=== PATIENT | female | born 1985 | race Caucasian/White ===

== ENCOUNTER → 2021-07-04 08:51 | Outpatient (BNVA) | payer OTHER, SELFPAY | PROVIDERS: PCP Physician Assistant Medical; Visit Provider Psychiatry & Neurology Neurology | DX: R25.1 Tremor, unspecified (principal); R06.83 Snoring | CPT/HCPCS: 99202 ==

== ENCOUNTER → 2021-08-12 14:47 | Outpatient (REF) | payer OTHER, SELFPAY | LOC: HO.SL 14:47 | PROVIDERS: PCP Physician Assistant Medical; Visit Provider Psychiatry & Neurology Neurology | DX: E66.9 Obesity, unspecified (principal); R06.83 Snoring | CPT/HCPCS: 95806 ==

== ENCOUNTER → 2021-09-05 09:20 | Outpatient (BNVA) | payer OTHER, SELFPAY | PROVIDERS: PCP Physician Assistant Medical; Visit Provider Psychiatry & Neurology Neurology | DX: G20 Parkinson's disease (principal); R06.83 Snoring | CPT/HCPCS: 99212 ==

== ENCOUNTER → 2021-12-11 09:16 | Outpatient (BNVA) | payer OTHER, SELFPAY | PROVIDERS: PCP Physician Assistant Medical; Visit Provider Psychiatry & Neurology Neurology | DX: G20 Parkinson's disease (principal); R06.83 Snoring | CPT/HCPCS: 99212 ==

== ENCOUNTER → 2022-03-19 09:09 | Outpatient (BNVA) | payer OTHER, SELFPAY | PROVIDERS: PCP Physician Assistant Medical; Visit Provider Psychiatry & Neurology Neurology | DX: G20 Parkinson's disease (principal); R06.83 Snoring; G25.81 Restless legs syndrome | CPT/HCPCS: 99212 ==

== ENCOUNTER → 2022-09-17 07:48 | Outpatient (BNVA) | payer OTHER, SELFPAY | PROVIDERS: PCP Physician Assistant Medical; Visit Provider Psychiatry & Neurology Neurology | DX: G20 Parkinson's disease (principal); R06.83 Snoring; G25.81 Restless legs syndrome | CPT/HCPCS: 99212 ==

== ENCOUNTER 2022-12-25 07:22 | Outpatient (AMB) | payer OTHER, SELFPAY ==
--- NOTE | 2022-12-25 07:36 | A.OFFVIS_ITS ---
Intake Vital Signs 12/25/22 07:37 Height 5 ft 3 in Weight 209 lb 6 oz BMI 37.1 BP 112/74 Blood Pressure Location Rt brachial Position Sitting Pulse 64 Pulse Source Pulse Oximeter Pulse Oximetry (%) 98 Oxygen Delivery Method Room Air Intake Visit Reasons: 3m follow up Tremors-confirmed Intake Note: Pt presents as a 3m f/u tremors. 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 Allergies latex Allergy (Intermediate, Verified 12/25/22 07:41) Hives sticky from bandages Adverse Reaction (Intermediate, Uncoded 12/25/22 07:41) Rash Medication List - Last Reconciled 12/25/22 by Patricia Lew MD acetaminophen ER (Tylenol 8 Hour) 1,300 mg PO .qhn baclofen 10 mg PO BID coenzyme Q10 (Co Q-10) 400 mg PO DAILY dulaglutide (Trulicity) 1.5 mg subcut QWEEK empagliflozin (Jardiance) 25 mg PO DAILY lancets (FreeStyle Lancets) As directed lidocaine 5% 1 patch topical DAILY metformin 500 mg PO BID omeprazole 20 mg PO DAILY propranolol ER 80 mg PO DAILY trihexyphenidyl 2 mg PO TID HPI HPI Comments History of Present Illness Details 37y/o right handed female comes for follow up of parkinsons disease. Her RAMAN scan showed asymmetric uptake in putamen c/w parkinsons disease. Her home sleep study was inconclusive. she reports loud snoring,frequent arousals, wakes up tired. she is on trihexyphenidyl 2mg bid , 1 tab as needed in the middle of the night and has noticed improvement.she has trouble with some activities.she denies any family history of parkinsons. 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 she feels weak in her left hand. No exposure to heavy metals or chemicals, no exposure to antipsychotics. she was given reglan( 6-8mts)last year after she had chloecystectomy. she denies any change in her speech , denies change in gait, denies REM sleep behavior disorder, denies cognitive issues, denies drooling, denies swallowing issues. [facility] Medical History Anxiety Benign breast disease Chronic back pain Depression Diabetes GERD (gastroesophageal reflux disease) Hyperlipidemia Obesity Osteoma of skull Restless legs syndrome (RLS) Snoring Surgical History H/O section H/O dilation and curettage Hx of cholecystectomy Family History Mother Breast cancer Diabetes Father Myocardial infarct Social History Household Members: Spouse and Children Housing: House Alcohol intake: former Patient Tobacco Use Status: Never used Tobacco Use of substances other than those prescribed or required for medical reasons: No Physical Exam Vital Signs: Last Vital Signs Pulse 64 12/25/22 07:37 BP 112/74 12/25/22 07:37 Pulse Ox 98 12/25/22 07:37 Oxygen Delivery Method Room Air 12/25/22 07:37 BMI result Body Mass Index 37.1 Const General: cooperative, healthy appearing, comfortable and no acute distress Nutritional Appearance: overweight Orientation/consciousness: patient oriented x3 HEENT Head: Yes normal to inspection and Yes normocephalic Neuro Other: Normal facial expression Normal blink intermittent rest tremors, mild left UE postural tremors 1+ cogwheel rigidity in the left upper extremity. Fine finger movements were mildly decreased on the left. Alternating hand movements mildly decreased on the left. Foot taps decreased on the left. Decreased shoulder shrug on the left. General: patient oriented x3 Gait exam (Neuro): Other gait observations present (normal stride , left UE high amplitude tremors and no arm swing on the left) Motor exam (neuro): 5/5 motor strength present throughout and Other motor observations present (Left UE - high amplitude rest, postural tremor) Psych Appearance: grossly normal Assessment & Plan Assessment & Plan (1) Parkinson's disease: Code(s): G20 - Parkinson's disease (2) Snoring: Code(s): R06.83 - Snoring (3) Restless legs syndrome (RLS): Code(s): G25.81 - Restless legs syndrome Plan Discussed Raman scan report - in detail and home sleep test in detail. Trihexyphenidyl 2mg 1 tab tid Continue hand exercises Decrease propranolol 80mg qd Suggested wrist splint for left wrist Magnesium 250-400mg qhs CMP and TSH normal Co Q 10 400mg qd Hg A1C 6.3 Medications: Changed From propranolol ER 120 mg PO DAILY 30 caps 3RF To propranolol ER 80 mg PO DAILY 30 caps 6RF Refilled trihexyphenidyl give with food (meal/snack) 2 mg PO TID 90 tabs 3RF Coding Level of Care Code Est Pt Level 4 (19061) Diagnoses Parkinson's disease G20 Snoring R06.83 Restless legs syndrome (RLS) G25.81
[2022-12-25 07:37] VITALS: BP 112/74; PULSE 64; O2SAT 98; BMI 37.1
== END 2022-12-25 08:07 | disposition home or self-care (01) ==
PROVIDERS: Visit Provider Psychiatry & Neurology Neurology
DX: G20 Parkinson's disease (principal); R06.83 Snoring; G25.81 Restless legs syndrome
CPT/HCPCS: 99214

== ENCOUNTER → 2022-12-25 07:22 | Outpatient (BNVA) | payer OTHER, SELFPAY | PROVIDERS: Visit Provider Psychiatry & Neurology Neurology | DX: G20 Parkinson's disease (principal); R06.83 Snoring; G25.81 Restless legs syndrome | CPT/HCPCS: 99212 ==

== ENCOUNTER 2023-05-06 07:27 | Outpatient (AMB) | payer OTHER, SELFPAY ==
--- NOTE | 2023-05-06 07:33 | A.OFFVIS_ITS ---
Intake Vital Signs 05/06/23 07:34 Height 5 ft 3 in Weight 206 lb BMI 36.5 BP 106/74 Blood Pressure Location Rt brachial Position Sitting Pulse 76 Pulse Source Pulse Oximeter Pulse Oximetry (%) 97 Oxygen Delivery Method Room Air Intake Visit Reasons: 4m f/u Tremors - Confirmed Intake Note: Patient presents for 4 month follow up tremors. Allergies latex Allergy (Intermediate, Verified 05/06/23 07:36) Hives sticky from bandages Adverse Reaction (Intermediate, Uncoded 05/06/23 07:36) Rash Medication List - Last Reconciled 05/06/23 by Patricia Lew MD acetaminophen ER (Tylenol 8 Hour) 1,300 mg PO .qhn baclofen 10 mg PO BID coenzyme Q10 (Co Q-10) 400 mg PO DAILY dulaglutide (Trulicity) 1.5 mg subcut QWEEK empagliflozin (Jardiance) 25 mg PO DAILY lancets (FreeStyle Lancets) As directed lidocaine 5% 1 patch topical DAILY magnesium oxide 400 mg PO DAILY metformin 500 mg PO BID naproxen (EC-Naproxen) 500 mg PO BID omeprazole 20 mg PO DAILY propranolol ER 80 mg PO DAILY trihexyphenidyl 2 mg PO TID HPI HPI Comments History of Present Illness Details 37y/o right handed female comes for foll ow up of parkinsons disease.she is doing well, had cramps in her right calf about 2 weeks . It was very painful and she was concerned about DVT so she went to ER- DVT was ruled out.Toradol helped for 2 hrs.she still has tightness in her right calf. Her labs including CK was normal SHe also tried warm compresses Her MARCIE scan showed asymmetric uptake in putamen c/w parkinsons disease. Her home sleep study was inconclusive. she reports loud snoring,frequent arousals, wakes up tired. she is on trihexyphenidyl 2mg bid , 1 tab as needed in the middle of the night and has noticed improvement.she has trouble with some activities.she denies any family history of parkinsons. 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 she feels weak in her left hand. No exposure to heavy metals or chemicals, no exposure to antipsychotics. she was given reglan( 6-8mts)last year after she had cholecystectomy. she denies any change in her speech , denies change in gait, denies REM sleep behavior disorder, denies cognitive issues, denies drooling, denies swallowing issues. [facility] Medical History (Updated 05/06/23 @ 08:12 by Patricia Lew MD) Muscle cramps Parkinson's disease without dyskinesia or fluctuating manifestations Restless legs syndrome (RLS) Snoring Osteoma of skull Benign breast disease Hyperlipidemia Obesity Anxiety Depression GERD (gastroesophageal reflux disease) Diabetes Chronic back pain Surgical History Hx of cholecystectomy H/O section H/O dilation and curettage Family History Mother Breast cancer Diabetes Father Myocardial infarct Social History Household Members: Spouse and Children Housing: House Alcohol intake: former Patient Tobacco Use Status: Never used Tobacco Physical Exam Vital Signs: Last Vital Signs Pulse 76 05/06/23 07:34 BP 106/74 05/06/23 07:34 Pulse Ox 97 05/06/23 07:34 Oxygen Delivery Method Room Air 05/06/23 07:34 BMI result Body Mass Index 36.5 Const General: cooperative, healthy appearing, comfortable and no acute distress Nutritional Appearance: overweight Orientation/consciousness: patient oriented x3 HEENT Head: Yes normal to inspection and Yes normocephalic Neuro Other: Normal facial expression Normal blink intermittent rest tremors, mild left UE postural tremors 1+ cogwheel rigidity in the left upper extremity. Fine finger movements were mildly decreased on the left. Alternating hand movements mildly decreased on the left. Foot taps decreased on the left. Decreased shoulder shrug on the left. severe tightness in right calf General: patient oriented x3 Gait exam (Neuro): Other gait observations present (normal stride , left UE high amplitude tremors and no arm swing on the left) Motor exam (neuro): 5/5 motor strength present throughout and Other motor observations present (Left UE - high amplitude rest, postural tremor) Psych Appearance: grossly normal Assessment & Plan Assessment & Plan (1) Parkinson's disease without dyskinesia or fluctuating manifestations: Code(s): G20.A1 - Parkinson's disease without dyskinesia, without mention of fluctuations (2) Muscle cramps: Code(s): R25.2 - Cramp and spasm Plan continue trihexiphenidyl 2mg bid and 3 rd dose as needed Increase baclofen 20mg bid PT for right calf tightness Orders: Orders PT Evaluation and Treatment 05/06/23 R25.2 - Cramp and spasm Medications: Changed From baclofen 10 mg PO BID To baclofen 20 mg (2 x 10 mg) PO BID 120 tabs 0RF Coding Level of Care Code Est Pt Level 4 (36983) Diagnoses Parkinson's disease without dyskinesia or fluctuating manifestations G20.A1 Muscle cramps R25.2
[2023-05-06 07:34] VITALS: BP 106/74; PULSE 76; O2SAT 97; BMI 36.5
== END 2023-05-06 08:17 | disposition home or self-care (01) ==
PROVIDERS: PCP Physician Assistant Medical; Visit Provider Psychiatry & Neurology Neurology
DX: G20.A1 Parkinson's disease without dyskinesia, without mention of fluctuations (principal)
CPT/HCPCS: 99214

== ENCOUNTER → 2023-05-06 07:27 | Outpatient (BNVA) | payer OTHER, SELFPAY | PROVIDERS: PCP Physician Assistant Medical; Visit Provider Psychiatry & Neurology Neurology | DX: G20.A1 Parkinson's disease without dyskinesia, without mention of fluctuations (principal); R25.2 Cramp and spasm | CPT/HCPCS: 99212 ==

== ENCOUNTER → 2023-09-29 14:28 | Outpatient (RCR) | payer OTHER, SELFPAY | END | disposition home or self-care (01) | LOC: HO.OT 12-26 13:41 | PROVIDERS: PCP Physician Assistant Medical; Visit Provider Psychiatry & Neurology Neurology | DX: G20 Parkinson's disease (principal) | CPT/HCPCS: 97110; 97112; 97166; 97530; 97535 ==

== ENCOUNTER 2023-12-23 07:23 | Outpatient (AMB) | payer OTHER, SELFPAY ==
--- NOTE | 2023-12-23 07:29 | A.OFFVIS_ITS ---
Vital Signs 12/23/23 07:31 Height 5 ft 3 in Weight 200 lb BMI 35.4 BP 118/70 Blood Pressure Location Rt brachial Position Sitting Respiration 16 Pulse 88 Pulse Source Palpation Intake Visit Reasons: 6m follow up - Confirmed Intake Note: Pt presents to the office for 7 month follow up for Parkinson's. 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 Her MARCIE scan showed asymmetric uptake in putamen c/w parkinsons disease. Her home sleep study was inconclusive. she reports loud snoring,frequent arousals, wakes up tired. she is on trihexyphenidyl 2mg bid , 1 tab as needed in the middle of the night and has noticed improvement.she has trouble with some activities.she denies any family history of parkinsons. 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 she feels weak in her left hand. No exposure to heavy metals or chemicals, no exposure to antipsychotics. she was given reglan( 6-8mts)last year after she had cholecystectomy. she denies any change in her speech , denies change in gait, denies REM sleep behavior disorder, denies cognitive issues, denies drooling, denies swallowing issues. [facility] Medical History Muscle cramps Parkinson's disease without dyskinesia or fluctuating manifestations Restless legs syndrome (RLS) Snoring Osteoma of skull Benign breast disease Hyperlipidemia Obesity Anxiety Depression GERD (gastroesophageal reflux disease) Diabetes Chronic back pain Surgical History Hx of cholecystectomy H/O section H/O dilation and curettage Family History Mother Breast cancer Diabetes Father Myocardial infarct Social History Household Members: Spouse and Children Housing: House Alcohol intake: former Patient Tobacco Use Status: Never used Tobacco Physical Exam Vital Signs: Last Vital Signs Pulse 88 12/23/23 07:31 Resp 16 12/23/23 07:31 BP 118/70 12/23/23 07:31 BMI result Body Mass Index 35.4 Const General: cooperative, healthy appearing, comfortable and no acute distress Nutritional Appearance: overweight Orientation/consciousness: patient oriented x3 HEENT Head: Yes normal to inspection and Yes normocephalic Neuro Other: Normal facial expression Normal blink intermittent rest tremors, mild left UE postural tremors 1+ cogwheel rigidity in the left upper extremity. Fine finger movements were mildly decreased on the left. Alternating hand movements mildly decreased on the left. Foot taps decreased on the left. Decreased shoulder shrug on the left. General: patient oriented x3 Gait exam (Neuro): Other gait observations present (normal stride , left UE high amplitude tremors and no arm swing on the left) Motor exam (neuro): 5/5 motor strength present throughout and Other motor observations present (Left UE - high amplitude rest, postural tremor) Psych Appearance: grossly normal Assessment & Plan Assessment & Plan (1) Parkinson's disease without dyskinesia or fluctuating manifestations: Code(s): G20.A1 - Parkinson's disease without dyskinesia, without mention of fluctuations Category: Medical (2) Muscle cramps: Code(s): R25.2 - Cramp and spasm Category: Medical Plan continue trihexiphenidyl 2mg bid and 3 rd dose as needed Baclofen 20mg bid Continue exercises PT for right calf tightness Coding Level of Care Code Est Pt Level 4 (96857) Complex EM visit Add On G2211 Diagnoses Parkinson's disease without dyskinesia or fluctuating manifestations G20.A1 Muscle cramps R25.2
[2023-12-23 07:31] VITALS: BP 118/70; PULSE 88; RESP 16; BMI 35.4
== END 2023-12-23 08:01 | disposition home or self-care (01) ==
PROVIDERS: PCP Physician Assistant Medical; Visit Provider Psychiatry & Neurology Neurology
DX: G20.A1 Parkinson's disease without dyskinesia, without mention of fluctuations (principal)
CPT/HCPCS: 99214; G2211

== ENCOUNTER → 2023-12-23 07:23 | Outpatient (BNVA) | payer OTHER, SELFPAY | PROVIDERS: PCP Physician Assistant Medical; Visit Provider Psychiatry & Neurology Neurology | DX: G20.A1 Parkinson's disease without dyskinesia, without mention of fluctuations (principal) | CPT/HCPCS: 99212 ==

== ENCOUNTER 2024-07-07 07:12 | Outpatient (AMB) | payer OTHER, SELFPAY ==
[2024-07-07 07:31] VITALS: PULSE 71; O2SAT 95; BMI 36.7
--- NOTE | 2024-07-07 07:31 | A.OFFVIS_ITS ---
Vital Signs 07/07/24 07:31 Height 5 ft 3 in Weight 207 lb BMI 36.7 Pulse 71 Pulse Source Pulse Oximeter Pulse Oximetry (%) 95 Oxygen Delivery Method Room Air Intake Visit Reasons: 6m follow up Intake Note: Patient following up on parkinson's disease & PT no consult on file. called [facility] spoke with Lynda patient has not had PT since 07/2023 Allergies latex Allergy (Intermediate, Verified 07/07/24 07:35) Hives sticky from bandages Adverse Reaction (Intermediate, Uncoded 07/07/24 07:35) Rash Medication List - Last Reconciled 07/07/24 by Patricia Lew MD acetaminophen ER (Tylenol 8 Hour) 1,300 mg PO .qhn baclofen 20 mg (2 x 10 mg) PO BID coenzyme Q10 (Co Q-10) 400 mg PO DAILY dulaglutide (Trulicity) 0.75 mg subcut QWEEK empagliflozin (Jardiance) 25 mg PO DAILY lancets (FreeStyle Lancets) As directed lidocaine 5% 1 patch topical DAILY magnesium oxide 400 mg PO DAILY metformin 500 mg PO BID omeprazole 20 mg PO DAILY propranolol ER 80 mg PO DAILY trihexyphenidyl 2 mg PO TID HPI Comments Details: 38y/o right handed female comes for follow up of Parkinson's disease.she is worse, her mood is not well controlled . Her tremors are worse when she is anxious. 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 Her MARCIE scan showed asymmetric uptake in putamen c/w parkinsons disease. Her home sleep study was inconclusive. she reports loud snoring,frequent arousals, wakes up tired. she is on trihexyphenidyl 2mg bid , 1 tab as needed in the middle of the night and has noticed improvement.she has trouble with some activities.she denies any family history of parkinsons. 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 she feels weak in her left hand. No exposure to heavy metals or chemicals, no exposure to antipsychotics. she was given reglan( 6-8mts)last year after she had cholecystectomy. she denies any change in her speech , denies change in gait, denies REM sleep behavior disorder, denies cognitive issues, denies drooling, denies swallowing issues. [facility] Medical History Depression Muscle cramps Parkinson's disease without dyskinesia or fluctuating manifestations Restless legs syndrome (RLS) Snoring Osteoma of skull Benign breast disease Hyperlipidemia Obesity Anxiety Depression GERD (gastroesophageal reflux disease) Diabetes Chronic back pain Surgical History Hx of cholecystectomy H/O section H/O dilation and curettage Family History Mother Breast cancer Diabetes Father Myocardial infarct Social History Household Members: Spouse and Children Housing: House Alcohol intake: former Patient Tobacco Use Status: Never used Tobacco Physical Exam Vital Signs: Last Vital Signs Pulse 71 07/07/24 07:31 Pulse Ox 95 07/07/24 07:31 Oxygen Delivery Method Room Air 07/07/24 07:31 BMI result Body Mass Index 36.7 Const General: cooperative, healthy appearing, comfortable and no acute distress Nutritional Appearance: overweight Orientation/consciousness: patient oriented x3 HEENT Head: Yes normal to inspection and Yes normocephalic Neuro Other: Normal facial expression Normal blink intermittent rest tremors, mild left UE postural tremors 1+ cogwheel rigidity in the left upper extremity. Fine finger movements were mildly decreased on the left. Alternating hand movements mildly decreased on the left. Foot taps decreased on the left. Decreased shoulder shrug on the left. General: patient oriented x3 Gait exam (Neuro): Other gait observations present (normal stride , left UE high amplitude tremors and no arm swing on the left) Motor exam (neuro): 5/5 motor strength present throughout and Other motor observations present (Left UE - high amplitude rest, postural tremor) Psych Appearance: grossly normal Assessment & Plan Assessment & Plan (1) Parkinson's disease without dyskinesia or fluctuating manifestations: Code(s): G20.A1 - Parkinson's disease without dyskinesia, without mention of fluctuations Category: Medical (2) Muscle cramps: Code(s): R25.2 - Cramp and spasm Category: Medical Plan continue trihexiphenidyl 2mg bid and 3 rd dose as needed Baclofen 20mg bid Trial carbidopa.levodopa 25/100 bid Continue exercises PT for right calf tightness Orders: Referrals Neurosurgery Referral G20.A1 - Parkinson's disease without dyskinesia, without mention of fluctuations Psychology Referral F32.A - Depression, unspecified, G20.A1 - Parkinson's disease without dyskinesia, without mention of fluctuations Medications: New sertraline (Zoloft) 1 tab qd for 1 week then 2 tabs qd orally daily; 60 tabs 5RF carbidopa-levodopa 25-100 mg 1 tab PO BID 60 tabs 6RF Coding Level of Care Code Est Pt Level 4 (09001) Complex EM visit Add On G2211 Diagnoses Parkinson's disease without dyskinesia or fluctuating manifestations G20.A1 Muscle cramps R25.2
== END 2024-07-07 08:11 | disposition home or self-care (01) ==
PROVIDERS: PCP Physician Assistant Medical; Visit Provider Psychiatry & Neurology Neurology
DX: G20.A1 Parkinson's disease without dyskinesia, without mention of fluctuations (principal)
CPT/HCPCS: 99214; G2211

== ENCOUNTER → 2024-07-07 07:12 | Outpatient (BNVA) | payer OTHER, SELFPAY | PROVIDERS: PCP Physician Assistant Medical; Visit Provider Psychiatry & Neurology Neurology | DX: G20.A1 Parkinson's disease without dyskinesia, without mention of fluctuations (principal); R25.2 Cramp and spasm; F32.A Depression, unspecified | CPT/HCPCS: 99212 ==

== ENCOUNTER 2024-10-24 07:20 | Outpatient (AMB) | payer OTHER, SELFPAY ==
[2024-10-24 07:27] VITALS: BP 118/74; BMI 37.0
--- NOTE | 2024-10-24 07:27 | MHC.OFFVIS ---
Vital Signs 10/24/24 07:27 Height 5 ft 3 in Weight 209 lb BMI 37.0 BP 118/74 Blood Pressure Location Rt brachial Position Sitting Intake Visit Reasons: 3 mnts f/u appt Intake Note: called patient she stated insurance denied neurosurgery consult. [facility] called patient to get information but has not called to book informed she was on wait list. Allergies latex Allergy (Intermediate, Verified 10/24/24 07:31) Hives sticky from bandages Adverse Reaction (Intermediate, Uncoded 10/24/24 07:31) Rash HPI Comments Details: 39y/o right handed female comes for follow up of Parkinson's disease.she is doing better with sertraline 75 mg, carbidopa/levodopa 25/100 bid and trihexyphenidyl 2mg bid. SHe has rare leg cramps - she is doing the stretches that PT suggested. Her MARCIE scan showed asymmetric uptake in putamen c/w parkinsons disease. Her home sleep study was inconclusive. she reports loud snoring,frequent arousals, wakes up tired. she is on trihexyphenidyl 2mg bid , 1 tab as needed in the middle of the night and has noticed improvement.she denies any family history of parkinsons. 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 she feels weak in her left hand. No exposure to heavy metals or chemicals, no exposure to antipsychotics. she was given reglan( 6-8mts)last year after she had cholecystectomy. she denies any change in her speech , denies change in gait, denies REM sleep behavior disorder, denies cognitive issues, denies drooling, denies swallowing issues. [facility] Medical History Depression Muscle cramps Parkinson's disease without dyskinesia or fluctuating manifestations Restless legs syndrome (RLS) Snoring Osteoma of skull Benign breast disease Hyperlipidemia Obesity Anxiety Depression GERD (gastroesophageal reflux disease) Diabetes Chronic back pain Surgical History Hx of cholecystectomy H/O section H/O dilation and curettage Family History Mother Breast cancer Diabetes Father Myocardial infarct Social History Household Members: Spouse and Children Housing: House Alcohol intake: former Patient Tobacco Use Status: Never used Tobacco Physical Exam Vital Signs: Last Vital Signs BP 118/74 10/24/24 07:27 BMI result Body Mass Index 37.0 Const General: cooperative, healthy appearing, comfortable and no acute distress Nutritional Appearance: overweight Orientation/consciousness: patient oriented x3 HEENT Head: Yes normal to inspection and Yes normocephalic Neuro Other: Normal facial expression Normal blink intermittent rest tremors, mild left UE postural tremors 1+ cogwheel rigidity in the left upper extremity. Fine finger movements were mildly decreased on the left. Alternating hand movements mildly decreased on the left. Foot taps decreased on the left. Decreased shoulder shrug on the left. 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
== END 2024-10-24 07:55 | disposition home or self-care (01) ==
LOC: HO.HSMS 07:20
PROVIDERS: PCP Physician Assistant Medical; Visit Provider Psychiatry & Neurology Neurology
DX: G20.A1 Parkinson's disease without dyskinesia, without mention of fluctuations (principal); R25.2 Cramp and spasm
CPT/HCPCS: 99214; G2211

== ENCOUNTER → 2024-10-24 07:20 | Outpatient (BNVA) | payer OTHER, SELFPAY | PROVIDERS: PCP Physician Assistant Medical; Visit Provider Psychiatry & Neurology Neurology | DX: G20.A1 Parkinson's disease without dyskinesia, without mention of fluctuations (principal) | CPT/HCPCS: 99212 ==

== ENCOUNTER 2025-04-20 07:25 | Outpatient (AMB) | payer OTHER, SELFPAY ==
[2025-04-20 07:27] VITALS: BP 110/72; PULSE 94; O2SAT 94; BMI 36.0
--- NOTE | 2025-04-20 07:27 | A.OFFVIS_ITS ---
Vital Signs 04/20/25 07:27 Height 5 ft 3 in Weight 203 lb BMI 36.0 BP 110/72 Blood Pressure Location Rt brachial Position Sitting Pulse 94 Pulse Source Pulse Oximeter Pulse Oximetry (%) 94 Oxygen Delivery Method Room Air Intake Visit Reasons: 6 mnts Intake Note: Follow up Parkinson's disease without dyskinesia or fluctuating manifestations and muscle cramps Supervisor Unloading Required: No Accompanied by: Self / Same As Patient Allergies latex Allergy (Intermediate, Verified 04/20/25 07:27) Hives sticky from bandages Adverse Reaction (Intermediate, Uncoded 10/24/24 07:31) Rash Medication List - Last Reconciled 04/20/25 by Patricia Lew MD acetaminophen ER (Tylenol 8 Hour) 1,300 mg PO .qhn atorvastatin (Lipitor) 40 mg PO DAILY baclofen 20 mg (2 x 10 mg) PO BID carbidopa-levodopa 25-100 mg 1 tab PO BID carbidopa-levodopa 25-100 mg ER 1 tab PO BEDTIME coenzyme Q10 (Co Q-10) 400 mg PO DAILY dulaglutide (Trulicity) mg subcut empagliflozin (Jardiance) 25 mg PO DAILY lancets (FreeStyle Lancets) As directed lidocaine 5% 1 patch topical DAILY magnesium oxide 400 mg PO DAILY metformin 500 mg PO BID omeprazole 20 mg PO DAILY propranolol ER 80 mg PO DAILY sertraline (Zoloft) 25 mg PO DAILY sertraline 50 mg PO DAILY trihexyphenidyl 2 mg PO TID HPI Comments Details: 39y/o right handed female comes for follow up of Parkinson's disease. No changes since last visit. she is doing better with sertraline 75 mg, carbidopa/levodopa 25/100 bid and trihexyphenidyl 2mg bid with occasional 3 rd dose . SHe has rare leg cramps - she is doing the stretches that PT suggested. Her MARCIE scan showed asymmetric uptake in putamen c/w parkinsons disease. Her home sleep study was inconclusive. she reports loud snoring,frequent arousals, wakes up tired. she is on trihexyphenidyl 2mg bid , 1 tab as needed in the middle of the night and has noticed improvement.she denies any family history of parkinsons. 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 she denies stiffness. she feels weak in her left hand. No exposure to heavy metals or chemicals, no exposure to antipsychotics. she was given reglan( 6-8mts)2020 after she had cholecystectomy. she denies any change in her speech , denies change in gait, denies REM sleep behavior disorder, denies cognitive issues, denies drooling, denies swallowing issues. [facility] Medical History Depression Muscle cramps Parkinson's disease without dyskinesia or fluctuating manifestations Restless legs syndrome (RLS) Snoring Osteoma of skull Benign breast disease Hyperlipidemia Obesity Anxiety Depression GERD (gastroesophageal reflux disease) Diabetes Chronic back pain Surgical History Hx of cholecystectomy H/O section H/O dilation and curettage Family History Mother Breast cancer Diabetes Father Myocardial infarct Social History Household Members: Spouse and Children Housing: House Alcohol intake: former Patient Tobacco Use Status: Never used Tobacco Physical Exam Vital Signs: Last Vital Signs Pulse 94 04/20/25 07:27 BP 110/72 04/20/25 07:27 Pulse Ox 94 04/20/25 07:27 Oxygen Delivery Method Room Air 04/20/25 07:27 BMI result Body Mass Index 36.0 Const General: cooperative, healthy appearing, comfortable and no acute distress Orientation/consciousness: patient oriented x3 HEENT Head: Yes normal to inspection and Yes normocephalic Neuro Other: Normal facial expression Normal blink intermittent rest tremors, mild left UE postural tremors 1+ cogwheel rigidity in the left upper extremity. Fine finger movements were mildly decreased on the left. Alternating hand movements mildly decreased on the left. Foot taps decreased on the left. Decreased shoulder shrug on the left. General: patient oriented x3 Motor exam (neuro): 5/5 motor strength present throughout Psych Appearance: grossly normal Assessment & Plan Assessment & Plan (1) Parkinson's disease without dyskinesia or fluctuating manifestations: Code(s): G20.A1 - Parkinson's disease without dyskinesia, without mention of fluctuations Category: Medical (2) Muscle cramps: Code(s): R25.2 - Cramp and spasm Category: Medical Plan continue trihexiphenidyl 2mg bid and 3 rd dose as needed Baclofen 20mg bid carbidopa.levodopa 25/100 bid start carbidopa/levodopa CR 25/100 qhs for right leg cramps she is using magnesium spray Continue exercises Declines PT sertraline 75 mg qd 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
== END 2025-04-20 08:09 | disposition home or self-care (01) ==
LOC: HO.HSMS 07:25
PROVIDERS: PCP Physician Assistant Medical; Visit Provider Psychiatry & Neurology Neurology
DX: G20.A1 Parkinson's disease without dyskinesia, without mention of fluctuations (principal); R25.2 Cramp and spasm
CPT/HCPCS: 99214; G2211

== ENCOUNTER → 2025-04-20 07:25 | Outpatient (BNVA) | payer OTHER, SELFPAY | PROVIDERS: PCP Physician Assistant Medical; Visit Provider Psychiatry & Neurology Neurology | DX: G20.A1 Parkinson's disease without dyskinesia, without mention of fluctuations (principal); Z79.899 Other long term (current) drug therapy | CPT/HCPCS: 99212 ==